=== PATIENT | male | born 1970 | race Two or more races ===

== ENCOUNTER → 2021-03-10 | Emergency (ER) | payer OTHER ==
[~2021-03-10] VITALS: Ht 175.3 cm; Wt 79.4 kg
== END | disposition home or self-care (01) ==
LOC: ER 19:15
DX: S41.112A Laceration without foreign body of left upper arm, initial encounter (principal); S01.81XA Laceration without foreign body of other part of head, initial encounter; Y09 Assault by unspecified means; Y92.9 Unspecified place or not applicable; Y99.9 Unspecified external cause status

== ENCOUNTER 2021-03-11 14:48 | Emergency (ER) | payer OTHER ==
[~2021-03-11] VITALS: Ht 177.8 cm; Wt 77.1 kg
== END 2021-03-11 18:45 | disposition home or self-care (01) ==
LOC: ER 14:48
DX: M25.511 Pain in right shoulder (principal); Y08.89XS Assault by other specified means, sequela